=== PATIENT | male | born 1960 | race Caucasian/White ===

== ENCOUNTER → 2017-04-10 | Outpatient (CLI) | payer OTHER ==
--- NOTE | 2017-04-10 17:04 | RAD ---
Chest, 2 views, 04/10/2017: History: Cough, COPD, smoking history There are emphysematous changes in the lungs. The lungs are hyperexpanded. There are moderate bilateral linear pulmonary opacities compatible with scarring. There is of pleural thickening are also present bilaterally compatible with scarring. There are granulomatous calcifications in the left lung. No definite pulmonary consolidation is seen. No significant pleural fluid is evident. Moderate hypertrophic spurring is present in the spine. IMPRESSION: 1. Emphysema. 2. Moderate bilateral pleural-parenchymal opacities most compatible with scarring.
== END | disposition home or self-care (01) ==
LOC: DXRADRC 12:24
PROVIDERS: ATTEND Nurse Practitioner Family
DX: J44.9 Chronic obstructive pulmonary disease, unspecified (principal); F17.200 Nicotine dependence, unspecified, uncomplicated
CPT/HCPCS: 71020

== ENCOUNTER 2017-08-14 11:31 | Emergency (ER) | payer OTHER ==
[~2017-08-14] VITALS: Ht 175.3 cm; Wt 79.4 kg
--- NOTE | 2017-08-14 12:41 | PHYS DOC ---
Past History Past Medical History: Hypertension Alcohol Use: Occasionally Drug Use: None Adult General Chief Complaint Chief Complaint: NOSEBLEED HPI HPI Patient is a 57 year old M who presents with intermittent nosebleed over the past 3-4 days. He also describes occasional dizziness is worse with standing or changing position. He denies other associated symptoms. He denies other exacerbating or alleviating factors. Review of Systems Review of Systems Constitutional: Denies fever or chills [] Eyes: Denies change in visual acuity, redness, or eye pain [] HENT: Negative except history of present illness Respiratory: Denies cough or shortness of breath [] Cardiovascular: No additional information not addressed in HPI [] GI: Denies abdominal pain, nausea, vomiting, bloody stools or diarrhea [] : Denies dysuria or hematuria [] Musculoskeletal: Denies back pain or joint pain [] Integument: Denies rash or skin lesions [] Neurologic: Denies headache, focal weakness or sensory changes [] Endocrine: Denies polyuria or polydipsia [] All other systems were reviewed and found to be within normal limits, except as documented in this note. Family History Family History No pertinent family medical history reported Current Medications Current Medications Current medications were reviewed Allergies Allergies Allergies Coded Allergies Type Severity Reaction Last Updated Verified No Known Drug Allergies 08/14/17 No Physical Exam Physical Exam Constitutional: Well developed, well nourished, no acute distress, non-toxic appearance. [] HENT: Normocephalic, atraumatic, dried blood in the left Koch without active bleeding noted. No clear source for bleeding was identified Eyes: EOMI, conjunctiva normal, no discharge. [] Neck: Normal range of motion, no tenderness, supple, no stridor. [] Cardiovascular:Heart rate regular rhythm, Lungs & Thorax: Bilateral breath sounds clear to auscultation [] Abdomen: Bowel sounds normal, soft, no tenderness, no masses, no pulsatile masses. [] Skin: Warm, dry, no erythema, no rash. o edema. [] Neurologic: Alert and oriented X 3, normal motor function, normal sensory function, no focal deficits noted. [] Psychologic: Affect normal, judgement normal, mood normal. [] Current Patient Data Vital Signs Vital Signs Date Time Temp Pulse Resp B/P (MAP) Pulse Ox O2 Delivery O2 Flow Rate FiO2 08/14/17 11:31 98.1 84 18 96 Room Air EKG EKG [] Radiology/Procedures Radiology/Procedures [] Course & Med Decision Making Course & Med Decision Making Pertinent Labs and Imaging studies reviewed. (See chart for details) Packing the nose was deferred as there was no active bleeding Dragon Disclaimer Dragon Disclaimer This electronic medical record was generated, in whole or in part, using a voice recognition dictation system. Departure Departure: Impression: Primary Impression: Nosebleed Disposition: HOME, SELF-CARE Condition: STABLE Referrals: LINDA ROSA APRN (PCP) Patient Instructions: Nosebleed Additional Instructions: Yan was seen in the emergency department for nosebleed. No emergency medical condition was found on history or physical exam. He was given education on managing a nosebleed which includes direct pressure, Afrin use in the setting of active bleeding and considering following up with an Ear Nose and Throat (ENT) doctor for further management. OMA PIERRE MD Aug 14, 2017 12:41
[2017-08-14 12:55] VITALS: BP 132/73
== END 2017-08-14 12:55 | disposition home or self-care (01) ==
LOC: ER 11:31
DX: R04.0 Epistaxis (principal); I10 Essential (primary) hypertension
CPT/HCPCS: 99281

== ENCOUNTER 2020-02-03 09:16 | Inpatient (IN) | payer BC, OTHER ==
[~2020-02-03] VITALS: Ht 176.5 cm; Wt 74.2 kg
--- NOTE | 2020-02-03 09:31 | PHYS DOC ---
Past History Past Medical History: Hypertension Additional Past Surgical Histo: Angioplasty to legs Smoking: Cigarettes, Greater than 1 pack/day Additional Smoking Information: 1.5ppd Alcohol Use: Occasionally Additional Alcohol Information: "a couple beers" a day Drug Use: None General Adult EDM: Chief Complaint: SHORTNESS OF BREATH HPI: HPI: 60-year-old male with past medical history of hypertension and smokes 1.5 packs/day presents with report of progressive shortness of air. Patient reports became worse over the last 4 days. Reports worse with exertion. Denies fever or chills. 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 Denies trauma. Denies leg swelling or calf tenderness. Denies known sick contacts. Denies known exposure to COVID-19. Review of Systems: Review of Systems: Constitutional: Denies fever or chills Eyes: Denies redness or eye pain HENT: Denies nasal congestion or sore throat Respiratory: Reports cough, shortness of breath, and dyspnea with exertion Cardiovascular: Denies chest pain or palpitations GI: Denies abdominal pain, nausea, or vomiting : Denies dysuria or hematuria Musculoskeletal: Denies back pain or joint pain Integument: Denies rash or skin lesions Neurologic: Denies headache, focal weakness or sensory changes; reports generalized weakness Complete systems were reviewed and found to be within normal limits, except as documented in this note. Heart Score: HEART Score for Chest Pain: HEART Score for Chest Pain Response (Comments) Value History Moderately Suspicious 1 ECG Nonspecific Repolarizatio 1 Age >45 - < 65 1 Risk Factors 1 or 2 Risk Factors 1 Troponin >1-<3x Normal Limit 1 Total 5 Risk Factors: Risk Factors: DM, Current or recent (<one month) smoker, HTN, HLP, family history of CAD, obesity. Risk Scores: Score 0 - 3: 2.5% MACE over next 6 weeks - Discharge Home Score 4 - 6: 20.3% MACE over next 6 weeks - Admit for Clinical Observation Score 7 - 10: 72.7% MACE over next 6 weeks - Early Invasive Strategies Allergies: Allergies: Allergies Coded Allergies Type Severity Reaction Last Updated Verified No Known Drug Allergies 08/14/17 No Physical Exam: PE: Constitutional: Well developed, well nourished, mild respiratory distress primarily with exertion, non-toxic appearance HENT: Normocephalic, atraumatic Eyes: Conjunctiva normal, no discharge Neck: Normal range of motion, no tenderness, supple, JVD Cardiovascular: Heart rate normal, irregular rhythm Lungs & Thorax: Increased work of breathing, tachypnea Abdomen: Soft, no tenderness Skin: Warm, dry, no erythema, no rash Extremities: No tenderness, ROM intact, trace BLE edema Neurologic: Alert and oriented X 3, no focal deficits noted Psychologic: Affect normal, judgment normal EKG: EKG: @0926 Sinus rhythm with bigeminy, QRS 106ms, QT/QTc 380/514ms Radiology/Procedures: Radiology/Procedures: PROCEDURE: CHEST AP ONLY CHEST AP ONLY 02/03/2020 9:18 AM INDICATION: Shortness of air with recent travel. COMPARISON: None available TECHNIQUE: Portable frontal view of the chest is provided. FINDINGS: The cardiomediastinal silhouette is within normal limits. Increase in small right pleural effusion with adjacent compressive atelectasis versus infiltrate. Increased trace left pleural effusion. Increased patchy interstitial airspace disease at the lung bases which could reflect superimposed pulmonary infiltrate. There is underlying COPD changes with pulmonary emphysematous changes and chronic interstitial findings. No pneumothorax. IMPRESSION: Increased bilateral pleural effusions with bibasilar interstitial airspace disease as may be seen with interstitial pneumonitis or interstitial edema. Electronically signed by: Ruthy Cook MD (02/03/2020 9:41 AM) [id number] PROCEDURE: CT ANGIOGRAPHY CHEST Examination: CT angiography chest HISTORY: Dyspnea, elevated d-dimer COMPARISON: 03/06/2011 TECHNIQUE: Axial CT angiographic images of chest were performed with IV contrast. Coronal and sagittal 3-D MIP reformats are performed Exposure: One or more of the following individualized dose reduction techniques were utilized for this examination: 1. Automated exposure control 2. Adjustment of the mA and/or kV according to patient size 3. Use of iterative reconstruction technique FINDINGS: The visualized thyroid gland grossly appears unremarkable. Central airways are patent. Moderate atherosclerotic calcifications identified in the aorta. Coronary artery calcifications identified. There is no evidence of filling defect identified in the main pulmonary arterial trunk and right and left main pulmonary arteries and the visualized lobar or segmental branches of the pulmonary arteries. Severe bilateral lung emphysematous changes. Calcified pleural plaques identified in the bilateral lungs including the bibasilar lungs are clear. There is a 7.2 cm linear density identified abutting the pleura in the right upper lobe and right middle lobe anteriorly could be scarring or round atelectasis or mass. Linear scarring changes identified in the left lingula. The visualized liver, spleen, adrenals grossly appears unremarkable. Partially visualized cystic structure identified in the right kidney measuring 2.8 cm probably a cyst. Moderate degenerative changes thoracic spine. IMPRESSION: 1. No evidence of pulmonary embolism. 2. Severe bilateral lung emphysematous changes with bilateral calcified pleural plaques. 3. There is a 7.2 cm linear density identified abutting the pleura in the right upper lobe and right middle lobe anteriorly could be scarring or round atelectasis or mass. Linear scarring changes identified in the left lingula. Consider follow-up PET/CT scan. Electronically signed by: Norberto Escoto MD (02/03/2020 12:11 PM) [id number] Course & Med Decision Making: Course & Med Decision Making Pertinent Labs and Imaging studies reviewed. (See chart for details) Patient presents with progressive shortness of air or the past week. Patient reports worse with exertion. Patient also with history of recent travel to [place]. COVID-19 suspected due to risk factors. COVID testing pending. Patient immediately placed in negative pressure room upon arrival to the ER. COVID precautions in place. EKG with bigeminy. No prior EKG for comparison. Labs obtained and posted to chart. WBC slightly elevated. Lactic acid WNL. BNP > 6000. Troponin 0.1. Anemia noted. Patient denies known active bleeding. Patient reports drinks at least "2 beers" daily. CXR with findings of bilateral opacities- infectious vs pulmonary edema. Empiric antibiotics given, however given elevated BNP and arrhythmia, more likely cardiac in nature. ASA and Lasix provided. D-dimer elevated. CTA chest obtained. CTA chest without acute PE. Emphysematous changes noted. Linear atelectasis versus scarring versus mass noted Patient requiring admission for further evaluation and treatment. Discussed with Dr. Anna (hospitalist) who is in agreement with admission. Discussed findings and plan with patient, who acknowledges understanding and agreement. COVID-19 CRITERIA: The patient was evaluated during the global COVID-19 pandemic, and that diagnosis was suspected/considered upon their initial presentation. Their evaluation, treatment and testing was consistent with current guidelines for patients who present with complaints or symptoms that may be related to COVID-19. [place]seas Disclaimer: Dragtip Disclaimer: This electronic medical record was generated, in whole or in part, using a voice recognition dictation system. Departure Departure: Impression: Primary Impression: CHF (congestive heart failure) Qualified Codes: I50.9 - Heart failure, unspecified Additional Impressions: Suspected 2019 novel coronavirus infection Elevated troponin Anemia Qualified Codes: D64.9 - Anemia, unspecified Bigeminy Elevated d-dimer Disposition: ADMITTED INPATIENT Admitting Physician: Deejay Anna Condition: GUARDED Referrals: FAMILIA KHALIL (PCP) Justification of Admission: Justification of Admission: Justification of Admission Dx: Yes CHF: Cardiac Arrhythmias Comments: Suspected COVID19, Anemia COVID-19 Assessment COVID-19 Patient Risks: Age 65 or older: No Sign of co-morbidity: Yes Exp to person + for COVID: No Exp to PUI: No Travel from affected area: Yes Lower respiratory symptoms: Yes Fever: No PPE Use: Full PPE with N95 mask or PAPR: Yes Critical Care Time Critical care time was 30 minutes which includes time at bedside, spent in discussion of patient's care with specialists and/or family members, with interpretation of laboratory and/or radiological studies and is exclusive of procedures. RUTHIE SCHWARZ DO Feb 03, 2020 09:31
[2020-02-03] MEDS ORDERED: DEXAMETHASONE SOD PHOS 10 MG/ML VIAL. ONE (09:39)
[2020-02-03] MEDS ORDERED: PIPERACILLIN/TAZOBACTAM 4.5 GM VIAL IV ONE (09:39)
[2020-02-03] MEDS ORDERED: AZITHROMYCIN 500 MG VIAL. IV ONE (09:40)
[2020-02-03] MEDS ORDERED: IV NORMAL SALINE 50ML 50 ML ONE (09:41)
[2020-02-03] MEDS ORDERED: IV NORMAL SALINE 250ML 250 ML ONE ×2 (09:41→09:57)
--- NOTE | 2020-02-03 09:44 | RAD ---
CHEST AP ONLY 02/03/2020 9:18 AM INDICATION: Shortness of air with recent travel. COMPARISON: None available TECHNIQUE: Portable frontal view of the chest is provided. FINDINGS: The cardiomediastinal silhouette is within normal limits. Increase in small right pleural effusion with adjacent compressive atelectasis versus infiltrate. Increased trace left pleural effusion. Increased patchy interstitial airspace disease at the lung bases which could reflect superimposed pulmonary infiltrate. There is underlying COPD changes with pulmonary emphysematous changes and chronic interstitial findings. No pneumothorax. IMPRESSION: Increased bilateral pleural effusions with bibasilar interstitial airspace disease as may be seen with interstitial pneumonitis or interstitial edema. Electronically signed by: Ruthy Cook MD (02/03/2020 9:41 AM) [id number]
[2020-02-03] MEDS ORDERED: DEXAMETHASONE SOD PHOS 10 MG/ML VIAL. IV ONE (09:45)
[2020-02-03] MEDS ORDERED: PIPERACILLIN/TAZOBACTAM 4.5 GM in IV NORMAL SALINE 50ML 50 ML IV ONE (09:45)
[2020-02-03] MEDS ORDERED: AZITHROMYCIN 500 MG in IV NORMAL SALINE 250ML 250 ML IV ONE (09:45)
[2020-02-03] MEDS ORDERED: ASPIRIN 325 MG TABLET PO ONE (10:00)
[2020-02-03 10:09] LABS: BASO # 0.1 x10^3/uL (0.0-0.2); BASO % 1 % (0-3); EOS # 0.1 x10^3/uL (0.0-0.7); EOS % 1 % (0-3); HEMATOCRIT 28.9 % (39.0-53.0); HEMOGLOBIN 8.8 g/dL (13.0-17.5); LYMPH % 16 % (24-48); MEAN CORPUSCULAR HEMOGLOBIN 22 pg (25-35); MEAN CORPUSCULAR HGB CONC 30 g/dL (31-37); MEAN CORPUSCULAR VOLUME 71 fL (79-100); MONO # 1.3 x10^3/uL (0.0-1.1); MONO % 11 % (0-9); NEUT # 8.7 x10^3uL (1.8-7.7); NEUT % 72 % (31-73); PLATELET COUNT 458 x10^3/uL (140-400); RED BLOOD COUNT 4.09 x10^6/uL (4.30-5.70); RED CELL DISTRIBUTION WIDTH 17.7 % (11.5-14.5); WHITE BLOOD COUNT 12.2 x10^3/uL (4.0-11.0)
[2020-02-03 10:19] LABS: ANION GAP 12 (6-14); BLOOD UREA NITROGEN 15 mg/dL (8-26); BUN/CREATININE RATIO 14 (6-20); CALCIUM 8.4 mg/dL (8.5-10.1); CARBON DIOXIDE 24 mmol/L (21-32); CHLORIDE 95 mmol/L (98-107); CREATININE 1.1 mg/dL (0.7-1.3); GFR 67.8; GLUCOSE 114 mg/dL (70-99); POTASSIUM 4.4 mmol/L (3.5-5.1); SODIUM 131 mmol/L (136-145)
[2020-02-03 10:35] LABS: ALBUMIN 3.3 g/dL (3.4-5.0); ALBUMIN/GLOBULIN RATIO 0.8 (1.0-1.7); ALK PHOS 93 U/L (46-116); ALT (SGPT) 17 U/L (16-63); AST (SGOT) 14 U/L (15-37); MAGNESIUM 2.1 mg/dL (1.8-2.4); TOTAL BILIRUBIN 0.5 mg/dL (0.2-1.0); TOTAL PROTEIN 7.2 g/dL (6.4-8.2)
[2020-02-03] MEDS ORDERED: FUROSEMIDE 40 MG/4 ML VIAL IVP ONE (10:50)
[2020-02-03] MEDS ORDERED: CONTRAST GIVEN. MC PRN (11:30)
[2020-02-03] MEDS ORDERED: IOHEXOL 350 MG/ML 100 ML VIAL. IV ONE (11:30)
[2020-02-03] MEDS ORDERED: FUROSEMIDE 100 MG/10 ML VIAL IVP ONE (11:45)
--- NOTE | 2020-02-03 11:56 | HP ---
ADMIT DATE: ATTENDING PHYSICIAN: Dr. Guerrero CHIEF COMPLAINT: Shortness of breath. HISTORY OF PRESENT ILLNESS: The patient is a 60-year-old gentleman admitted through the ED with a 4-day history of progressive dyspnea with minimal exertion. Dictation Ends Here. BO GUERRERO MD DR: TUNDE/ruchi JOB#: [id number] / [id number]
--- NOTE | 2020-02-03 12:14 | RAD ---
Examination: CT angiography chest HISTORY: Dyspnea, elevated d-dimer COMPARISON: 03/06/2011 TECHNIQUE: Axial CT angiographic images of chest were performed with IV contrast. Coronal and sagittal 3-D MIP reformats are performed Exposure: One or more of the following individualized dose reduction techniques were utilized for this examination: 1. Automated exposure control 2. Adjustment of the mA and/or kV according to patient size 3. Use of iterative reconstruction technique FINDINGS: The visualized thyroid gland grossly appears unremarkable. Central airways are patent. Moderate atherosclerotic calcifications identified in the aorta. Coronary artery calcifications identified. There is no evidence of filling defect identified in the main pulmonary arterial trunk and right and left main pulmonary arteries and the visualized lobar or segmental branches of the pulmonary arteries. Severe bilateral lung emphysematous changes. Calcified pleural plaques identified in the bilateral lungs including the bibasilar lungs are clear. There is a 7.2 cm linear density identified abutting the pleura in the right upper lobe and right middle lobe anteriorly could be scarring or round atelectasis or mass. Linear scarring changes identified in the left lingula. The visualized liver, spleen, adrenals grossly appears unremarkable. Partially visualized cystic structure identified in the right kidney measuring 2.8 cm probably a cyst. Moderate degenerative changes thoracic spine. IMPRESSION: 1. No evidence of pulmonary embolism. 2. Severe bilateral lung emphysematous changes with bilateral calcified pleural plaques. 3. There is a 7.2 cm linear density identified abutting the pleura in the right upper lobe and right middle lobe anteriorly could be scarring or round atelectasis or mass. Linear scarring changes identified in the left lingula. Consider follow-up PET/CT scan. Electronically signed by: Norberto Escoto MD (02/03/2020 12:11 PM) [id number]
[2020-02-03 12:40] VITALS: BP 111/75
--- NOTE | 2020-02-03 12:40 | HP ---
ADMIT DATE: 02/03/2020 ATTENDING PHYSICIAN: Dr. Guerrero. CHIEF COMPLAINT: Shortness of breath. HISTORY OF PRESENT ILLNESS: The patient, age 60, has a 4-day history of progressive shortness of breath. He is quite dyspneic at rest. He has orthopnea, worse with exertion. No fevers or chills. In the ED, the chest x-ray demonstrated cardiomegaly and bilateral pleural effusions and vascular congestion. The patient denies any recent exposure to COVID-19. He does drink heavily. He admits at least a 6-pack perhaps more day of beer. He also drinks alcohol. In addition, he is a heavy smoker, 2 packs a day history. He denied any chest pain. His initial cardiac enzymes were slightly elevated. He has some bigeminy on the rhythm strip. Lasix was administered, second dose administered. 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 He is admitted for further treatment, evaluation, serial chemistry, diuresis, cardiology consultation and echocardiogram. PAST MEDICAL HISTORY: Significant for angioplasty to the left leg for peripheral vascular disease 7 years ago. He had vague, remote history of TIA which was very short lasting about 20 years ago. RECENT TRAVEL: He went to [place]. He does drink to excess. He has not had any recent COVID-19 exposure. SOCIAL HISTORY: He has greater than 2 packs a day smoking for many years. Alcohol history as noted. He denies any recreational drug use. ALLERGIES: He has no recorded drug allergies. CURRENT HOME SCHEDULED MEDICINES: None. 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 He had recent travel to [place] 3 weeks ago for a convention. No recent other exposures. REVIEW OF SYSTEMS: Significant for dyspnea with minimal exertion, orthopnea, dry nonproductive cough, dyspnea with exertion, some palpitations. No nausea, vomiting, diarrhea. All other systems reviewed and turned to be negative. PHYSICAL EXAMINATION: GENERAL: I saw him. This is a pleasant gentleman who appears a bit older than her stated age. VITAL SIGNS: In the ED showed a blood pressure of 125/84, pulse was 50 and irregular, temperature 98.5 degrees Fahrenheit, oxygen saturation 95% on 2 liters nasal cannula. HEENT: Head is without trauma. Pupils are reactive. Sclerae nonicteric. Oropharynx is clear. NECK: Supple, no bruits identified. LUNGS: Bibasilar rales. CARDIOVASCULAR: Showed regular heart tones, frequent extra systolic beats. Peripheral pulses are palpable and weak. ABDOMEN: Soft, obese, protuberant. No organomegaly. Bowel sounds are hypoactive. EXTREMITIES: Showed no cyanosis or edema. Surgical scar in the left knee is well healed. Peripheral pulses distally were adequate. SKIN: Warm and dry. PERTINENT LABORATORY STUDIES: Chest x-ray showed increased bilateral pleural effusion, bibasilar interstitial airspace disease consistent with interstitial edema. Heart size is upper limits of normal. Hemoglobin is 8.8 g/dL with white count of 12,200. Sodium 131, potassium 4.4 mEq, creatinine is 1.1 mg/dL. BNP is 6000. First set of troponin was 0.10. Lactic acid was normal. ASSESSMENT: 1. 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 2. Acute congestive heart failure most likely systolic in nature. 3. Chronic obstructive pulmonary disease due to tobacco use. 4. Peripheral vascular disease related to lifestyle. 5. Anemia of chronic disease. His MCV is diminished. I suspect he has insidious internal gastrointestinal blood loss. 6. Dyspnea and hypoxemia. 7. Bigeminy noted on rhythm strip. PLAN: 1. Admit to the inpatient unit. 2. Telemetry monitoring. 3. Diuresis. 4. Echocardiogram. 5. Serial CBCs and chemistries. 6. Cardiology consultation. 7. Further treatment pending results of echocardiogram. Most likely he will need preload and afterload reduction. 8. Nicotine patch has been ordered. 9. Monitor for signs of alcohol withdrawal symptoms. 10. He needs to have GI evaluation with panendoscopy. I suspect he has iron deficiency anemia, certainly malignancies and ulcer disease needs to be ruled out. That could be scheduled as an outpatient. BO GUERRERO MD DR: TUNDE/ruchi JOB#: [id number] / [id number]
[2020-02-03 12:48] LABS: HYPOCHROMIA MOD; PLT ESTIMATE INCREASED (ADEQUATE); POLYCHROMASIA PRESENT
[2020-02-03 12:52] LABS: MICROCYTOSIS PRESENT
[2020-02-03 12:53] LABS: BURR CELLS PRESENT; OVALOCYTES OCC; TARGET CELLS OCC
[2020-02-03 12:54] LABS: ANISOCYTOSIS PRESENT
--- NOTE | 2020-02-03 13:08 | NUR ---
CONSULT FOR CARDIOLOGY HAS BEEN CALLED.
[2020-02-03] MEDS: NICOTINE 21MG PATCH. TD SCH (13:31)
--- NOTE | 2020-02-03 14:40 | NUR ---
PATIENT ARRIVED TO THE ROOM 125 VIA EMS, ABLE TO TRANSFER TO BED WITH STAND BY ASSIST. PT IS A/O X 4, ABLE TO PERFORM ADLS INDEPENDENTLY. VS ARE STABLE, PT IS PLACED ON ISOLATION WITH CONTACT /AIRBORNE PRECAUTIONS , PT WAS TESTED FOR COVID 19 IN ED, PENDING RESULT. PT IS ON CONTINUOUS 02 2L, HOB ELEVATED. PT IS ORIENTED TO THE ROOM AND HOSPITAL POLICIES. PT VERBALIZED UNDERSTANDING. WILL CONTINUE TO MONITOR.
[2020-02-03] MEDS ORDERED: LOSA50TA14 PO (14:41)
[2020-02-03] MEDS ORDERED: AMLO10TA8 PO (14:41)
--- NOTE | 2020-02-03 15:36 | CONS ---
DATE OF CONSULTATION: 02/03/2020 REASON FOR CONSULTATION: Heart failure and elevated troponin. CONSULTING PHYSICIAN: Dr. Deejay Anna. HISTORY OF PRESENT ILLNESS: The patient is a pleasant 60-year-old man who presents to the hospital in the setting of worsening progressive dyspnea. He reports that he was in his usual state of health until about a week ago and then he began to have some worsening exertional dyspnea. He denies any chest pain. He denies any palpitations, syncope, orthopnea, but does have some PND and lower extremity edema. He also reports some claudication symptoms. Since arrival, he has been given IV diuretics and reports feeling somewhat improved. A CT scan of the chest has also been performed, which suggestive of severe emphysematous changes. PAST MEDICAL HISTORY: 1. Tobacco abuse. 2. Alcohol abuse. 3. PAD status post PVI the left SFA in 2014. SOCIAL HISTORY: Notable that he smokes heavily. He also drinks heavily. Denies any illicit drug use. He lives at home with his . FAMILY HISTORY: Noncontributory. ALLERGIES: No known drug allergies. CURRENT CARDIOVASCULAR MEDICATIONS: None. PHYSICAL EXAMINATION: VITAL SIGNS: Afebrile, 102, 20, 111/75, 96% on 2 liters nasal cannula. GENERAL: He is alert and oriented, no acute distress. HEAD AND NECK: Unremarkable. CARDIAC: Regular rate and rhythm without murmurs, rubs or gallops. LUNGS: Clear to auscultation bilaterally. ABDOMEN: Soft, nontender, nondistended. EXTREMITIES: No clubbing, cyanosis or edema with diminished pedal pulses, 2+ radial pulses. NEUROLOGIC: No focal deficits. MUSCULOSKELETAL: No obvious trauma. DIAGNOSTIC STUDIES: 1. His hemoglobin decreased to 8.2, elevated white blood cell count 12.2. 2. Creatinine is within normal limits with low sodium of 131. 3. Troponin elevated 0.107. 4. CT of the chest reveals severe emphysematous changes. IMPRESSION: Presumed systolic and diastolic heart failure with underlying chronic obstructive pulmonary disease. RECOMMENDATIONS: We will plan for an echocardiogram after his COVID testing is performed and for now continue intravenous diuretics and treatment of his COPD. Depending on his echocardiogram, if he has some LV dysfunction, we will plan for transfer to [place] for cardiac catheterization, otherwise, we will plan for outpatient MPI evaluation. Thank you for this consultation. DALTON BAUMAN MD DR: AVELINO/ruchi JOB#: [id number] / [id number]
[2020-02-03 15:38] VITALS: BP 125/76
--- NOTE | 2020-02-03 20:16 | EKG ---
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
[2020-02-03 20:27] VITALS: BP 126/71
[2020-02-03 23:46] VITALS: BP 112/64
--- NOTE | 2020-02-04 05:47 | NUR ---
Pt slept in [place]. He is up ad frantz to the bathroom to void without c/o SOB. Voiding now per urinal the last few voids but prior to that reported he had voided at about 5 times prior. He has been afebrile and VSS. We discussed his covid results to come back today. He asked about the ECHO and if that would be done here and I said yes we do that here. He does mention he is feeling better now than when he came in though.
[2020-02-04 05:50] VITALS: BP 119/67
[2020-02-04] MEDS: NICOTINE 21MG PATCH. TD SCH (09:00)
[2020-02-04 11:00] VITALS: BP 113/66
[2020-02-04 15:00] VITALS: BP 113/68
[2020-02-04] MEDS: IPRATROPIUM/ALBUTEROL 20/100mcg/INH INHALER. INH SCH ×2 (15:57→20:00)
--- NOTE | 2020-02-04 16:58 | PN ---
DATE: 02/04/2020 SUBJECTIVE: The patient is resting, slightly propped up in bed, in no apparent respiratory distress. He continued to have recurrent bouts of cough with scanty whitish sputum. Denied any chest pain. He denied any shortness of breath while at rest. Did complain of pain in the calf muscle when he walks, it gets worse when he walks about 60 feet. He apparently is a heavy smoker. He smokes about 1-1/2 packs a day for almost 50 years. He does have peripheral vascular disease, status post angioplasty and stent deployment to his left lower extremity. PHYSICAL EXAMINATION: GENERAL: When I examined him this afternoon, he looked well and with no pallor. He was actually pale, but no jaundice, cyanosis, or thyromegaly. No jugular venous distension. No lower limb edema. VITAL SIGNS: His heart rate was 109, blood pressure was 113/66, temperature was 98.4, respiratory rate 20, and oxygen saturation was 95%. HEAD, EYES, EARS, NOSE AND THROAT: Normocephalic, atraumatic. NECK: Supple. HEART: Showed normal first and second heart sounds. No gallop, rub or murmur. CHEST: Showed central trachea, equal bilateral chest expansion, air entry. Vesicular sounds, I could not really appreciate any crepitation or rhonchi anteriorly. ABDOMEN: Distended, soft, nontender. No guarding or rigidity. No organomegaly. All hernial orifice intact. Bowel sounds normal. NEUROLOGIC: He is awake, alert, responding appropriately. All cranial nerves are intact. He moves extremities without difficulty. EXTREMITIES: Examination of both lower extremities showed no clubbing, cyanosis or edema. He has loss of skin appendages. The dorsalis pedis and tibialis are easily audible with handheld Doppler ultrasound. His intake over the last 24 hours was incompletely recorded. LABORATORY DATA: His lab work as of yesterday showed a white cell count 12,200, hemoglobin 8.8, hematocrit 28.9, MCV 71 and platelet count of 458,000 with a manual differential shows 72% polymorphs, 16% lymphocytes, 11% monocytes. His chemistry showed a serum sodium 131, potassium 4.4, chloride 95, bicarbonate 24, anion gap of 12, BUN 15, creatinine 1.1, estimated GFR was 68 mL per minute. His glucose was 114. Lactic acid is only 1.7. His calcium was 8.4, magnesium was 2.1. Total bilirubin, AST, ALT, alkaline phosphatase were normal. CK was 72 and first set of troponin was 0.107. Beta natriuretic peptide was 6031. Total protein was 7.2, albumin was 3.3. His prothrombin time, INR and APTT were normal. D-dimer was high at 1.42. Toxic screen showed blood alcohol level to be less than 10. His chest x-ray showed the patient has increased bilateral pleural effusion with bilateral interstitial airspace disease, may be seen with interstitial pneumonitis, interstitial edema. CT angio of the chest showed there is no evidence of pulmonary embolism, severe bilateral lung, emphysematous changes, bilateral calcified pleural plaques. There is a 7.2 cm linear density identified abutting the pleura in the right upper lobe and right middle lobe anteriorly, could be scarring or rounded atelectasis or mass. Linear scarring changes identified in the left lingula. In summary, this is a 60-year-old male patient who came in with progressively worsening shortness of breath. He denied any chest pain, denied any palpitations, syncope. Denied any orthopnea, but does have some paroxysmal nocturnal dyspnea and lower extremity edema. He also reports claudication symptoms since arrival. He has received IV diuretics and he was feeling somewhat improved. CT of the chest showed no evidence of pulmonary emboli, but has severe emphysematous changes. He has 3 sets of cardiac enzymes that are trending down. He continued to have multiple episodes of bigeminy and trigeminy. ASSESSMENT: 1. Severe chronic obstructive pulmonary disease. 2. Acute systolic and diastolic congestive heart failure. 3. Anemia that is microcytic hypochromic, has hyponatremia and elevated troponin. He was seen in consultation by the Cardiology team and an echocardiogram was ordered. It was not done yet. I will arrange for him to have bilateral arterial Doppler ultrasound and also serum iron, TIBC and stool for occult blood. He is not on any nonsteroidal anti-inflammatory medication at least by the medication list. He is on amlodipine and losartan. He indicated that he has also hypertension. RANDALL AGARWAL MD DR: ALEX/ruchi JOB#: [id number] / [id number]
--- NOTE | 2020-02-04 18:53 | NUR ---
Shift report: Patient has been very pleasant and cooperative throughout shift. Patient has consistently had various forms of ectopy throughout entire shift, PVC's, PAC's Bigeminy, Trigeminy and a 5 beat run of VTACH. Dr. Sena was called and notified of these findings and he stated that he thought the patient was stable and did not need any intervention at this time. We are waiting on the Echocardiogram to be completed along with receiving the results from patients Covid19 test to determine what the next plan of care will be. Dr Sena stated the patient will either transfer to [place] if Echo results are abnormal for a cardiac cath or if Echo normal results patient will be scheduled for an outpatient stress test. Patient is aware of this plan of care and is agreeable to this plan at this time
[2020-02-04 20:00] VITALS: BP 119/74
[2020-02-04 22:41] VITALS: BP 117/72
[2020-02-04 22:55] LABS: FECAL OB PT POSITIVE (NEG)
[2020-02-05 06:16] VITALS: BP 119/57
[2020-02-05 06:22] LABS: CALCIUM 8.5 mg/dL (8.5-10.1); GFR 75.7; POTASSIUM 3.9 mmol/L (3.5-5.1)
[2020-02-05] MEDS: NICOTINE 21MG PATCH. TD SCH (08:38)
[2020-02-05 11:00] VITALS: BP 105/88
[2020-02-05] MEDS: IPRATROPIUM/ALBUTEROL 20/100mcg/INH INHALER. INH SCH (12:00)
--- NOTE | 2020-02-05 13:35 | CARD ---
MR#: [id number] Date of Study: 02/05/2020 Ordering Physician: BO GUERRERO, Referring Physician: BO GUERRERO, Tech: Clara Thomson RDCS APPROVED REPORT EXAM: Two-dimensional and M-mode echocardiogram with Doppler and color Doppler. Other Information Quality : Good Rhythm : PVC's INDICATION Congestive Heart Failure 2D DIMENSIONS RVDd2.1 (2.9-3.5cm)Left Atrium(2D)4.3 (1.6-4.0cm) IVSd0.7 (0.7-1.1cm)Aortic Root(2D)3.0 (2.0-3.7cm) LVDd6.4 (3.9-5.9cm)LVOT Diameter2.3 (1.8-2.4cm) PWd0.6 (0.7-1.1cm)RVOT Diameter2.2 cm LVDs4.9 (2.5-4.0cm)FS (%) 30.0 % LVEF(%)60.0 (>50%) Aortic Valve REA (VTI)4.20cm2 LEFT VENTRICLE The Left Ventricle is mildly dilated. There is normal left ventricular wall thickness. Left ventricle systolic function is low normal. The Ejection Fraction is 50-55%. Septal motion consistent with cond uction abnormality. Otherwise, mild global hypokinesis. Transmitral Doppler flow pattern is Grade I-a bnormal relaxation pattern. RIGHT VENTRICLE The right ventricle is normal size. The right ventricular systolic function is normal. ATRIA The left atrium is mildly dilated. The right atrium size is normal. The interatrial septum is intact with no evidence for an atrial septal defect or patent foramen ovale as noted on 2-D or Doppler imagi ng. AORTIC VALVE The aortic valve is calcified but opens well. Doppler and Color Flow revealed no significant aortic r egurgitation. There is no significant aortic valvular stenosis. MITRAL VALVE The mitral valve is normal in structure and function. There is no evidence of mitral valve prolapse. There is no mitral valve stenosis. Doppler and Color-flow revealed mild mitral regurgitation. TRICUSPID VALVE The tricuspid valve is normal in structure and function. Doppler and Color Flow revealed no tricuspid valve regurgitation noted. There is no tricuspid valve stenosis. PULMONIC VALVE Doppler and Color Flow revealed no pulmonic valvular regurgitation. There is no pulmonic valvular gerson nosis. GREAT VESSELS The aortic root is normal in size. The ascending aorta is mildly dilated at 3.5 cm. The IVC is normal in size and collapses >50% with inspiration. PERICARDIAL EFFUSION There is no evidence of significant pericardial effusion. Critical Notification Critical Value: No <Conclusion> Left ventricle systolic function is low normal. The Ejection Fraction is 50-55%. Septal motion consistent with conduction abnormality. Otherwise, mild global hypokinesis. The ascending aorta is mildly dilated at 3.5 cm. Signed by : Leo Sena, Electronically Approved : 02/05/2020 13:35:27
[2020-02-05 15:29] VITALS: BP 120/73
--- NOTE | 2020-02-05 16:00 | RAD ---
DUPLEX SONOGRAPHY OF THE PERIPHERAL ARTERIAL SYSTEM OF BOTH LOWER EXTREMITIES Clinical indications: Claudication with walking 60 feet. Findings: Duplex sonography of the peripheral arterial system of both lower extremities including garza scale and color flow and spectral waveform analysis was performed. Biphasic waveforms are seen. There is moderate plaque throughout the peripheral arterial system of both lower extremities. There is a significant stenosis of the proximal right profunda femoral artery of 50 percent. No other significant stenosis is seen.No occlusive disease is seen. The measurements were performed using the NASCET criteria. Peak systolic flow velocities are as follows: Right leg: common femoral artery- 115 cm/sec, profunda femoral artery -198 cm/sec, proximal superficial femoral artery -102 cm/sec, mid superficial femoral artery -85 cm/sec, distal superficial femoral artery- 114 cm/sec, popliteal artery -118 cm/sec, proximal posterior tibial artery- 43 cm/sec, distal posterior tibial artery- 66 cm/sec, peroneal artery- 57 cm/sec, anterior tibial artery- 49 cm/sec, dorsalis pedis artery -31 cm/sec. Left leg: common femoral artery- 191 cm/sec, profunda femoral artery -115 cm/sec, proximal superficial femoral artery- 135cm/sec, mid superficial femoral artery- 66 cm/sec, distal superficial femoral artery- 37 cm/sec, popliteal artery -65 cm/sec, proximal posterior tibial artery -44 cm/sec, distal posterior tibial artery- 44 cm/sec, peroneal artery -31 cm/sec, anterior tibial artery -50 cm/sec, dorsalis pedis artery- 33 cm/sec. Impression: Significant 50 percent stenosis of the proximal right profunda femoral artery. No occlusive disease. Electronically signed by: Ar Vick MD (02/05/2020 3:57 PM) [id number]
--- NOTE | 2020-02-05 16:33 | NUR ---
Assumed care of pt at 0700. Pt is a/ox4, resting comfortably in bed. COVID test is negative, called ECHO in order to arrange his scan for today. ECHO and Arterial study completed, received okay from Cardiology to discharge. Awaiting Dr Ortiz.
[2020-02-05] MEDS ORDERED: ASCO500C PO (16:36)
[2020-02-05] MEDS ORDERED: FERR325T14 PO (16:36)
--- NOTE | 2020-02-05 17:20 | NUR ---
Discharge orders reviewed with pt, he states that he has no questions or concerns. Educated on new prescriptions. IV removed with no complications. Walked pt to the front door where spouse was waiting for him. Pt left with all of his belongings.
--- NOTE | 2020-02-05 17:58 | DS ---
DATE OF DISCHARGE: 02/05/2020 HOSPITAL COURSE: The patient is a 60-year-old male patient who was admitted with worsening progressive shortness of breath that started about a week ago; however, he denied any chest pain, denied any palpitation, orthopnea, although he apparently has some paroxysmal nocturnal dyspnea and lower extremity edema, also reports some claudication. He said he can only walk about 60 feet and then he started complaining of severe cramping pain in his both calf muscles. He was treated with IV diuretics. CT scan of the chest showed severe emphysema and he was admitted with suspected COVID-19 pneumonia; however, his test was negative. He did have 3 sets of cardiac enzymes, but trending down and has an echocardiogram, which basically showed that his left ventricular systolic function is normal, ejection fraction is 50-55%, septal motion consistent with conduction abnormality, otherwise mild global hypokinesis, the ascending aorta is mildly dilated at 3.5 cm and the decision was initially if the ejection fraction was low to transfer him to [place]; however, his echocardiogram showed that his ejection fraction is within normal range and therefore, a decision was made to discharge him home. I did arrange for him to have bilateral arterial Doppler ultrasound, which showed that the patient has significant 50% stenosis of the proximal right profunda femoral arteries, but no occlusive disease. A CT angio of the chest showed no evidence of pulmonary emboli; however, he has severe bilateral lung emphysematous changes, bilateral calcified pleural plaques. There is a 7.2 cm linear density identified abutting the pleura in the right upper lobe and the right middle lobe anteriorly could be scarring or round atelectasis or mass. Linear scarring changes identified in the left lingula. The radiologist recommended to consider followup PET CT scan. PHYSICAL EXAMINATION: GENERAL: When I saw him this afternoon, he was sitting on the edge of the bed comfortably in no apparent respiratory distress. No pallor, jaundice, cyanosis or thyromegaly. No jugular venous distention. No limb edema. VITAL SIGNS: His heart rate was 91, blood pressure was 120/73, temperature was 97.7, respiratory rate was 16, and oxygen saturation was 94% on room air. HEAD, EYES, EARS, NOSE AND THROAT: Showed normocephalic, atraumatic. NECK: Supple. HEART: Showed normal first and second heart sounds with no gallop, rub or murmur. CHEST: Clear to auscultation. No crepitation or rhonchi. ABDOMEN: Distended, soft, nontender. NEUROLOGIC: He was awake, alert, responding appropriately. All cranial nerves intact. EXTREMITIES: He moves extremities without difficulty. He ambulates without assistance or assistive devices. His intake over the last 24 hours was 1290. LABORATORY DATA: His lab work showed that his serum sodium continued to be somewhat low at 131, potassium 3.9, chloride 97, bicarbonate 24, anion gap of 10, BUN of 19, creatinine 1, estimated GFR was 75 mL per minute. His glucose was 94, calcium was 8.5. Serum iron was 10. TIBC was 444, iron saturation was 2. Ferritin was 14. He has serum triglycerides of 82, total cholesterol 134, LDL was 86, VLDL was 16, HDL was 32 and the ratio was 4. His white cell count was 12,200, hemoglobin 8.8, hematocrit 28.9, MCV 71 and platelet count of 458,000. His prothrombin time, INR and aPTT were normal. D-dimer was high at 1.42. Toxic screen was negative. His COVID-19 by PCR was negative. His stool for occult blood was positive. His 2 sets of blood cultures showed no growth. DISCHARGE MEDICATIONS: He was discharged home to continue on ascorbic acid 500 mg twice a day, ferrous sulfate 325 mg twice a day, amlodipine besylate 10 mg once a day, losartan potassium 50 mg twice a day. Continue also on his bronchodilators that he had at home. FINAL DISCHARGE DIAGNOSES: 1. Severe emphysema as reported by the CT scan of the chest with PE protocol, no evidence of pulmonary emboli. 2. Peripheral vascular disease, status post stenting of the left lower extremity. 3. Acute systolic and diastolic congestive heart failure, microcytic hypochromic anemia. 4. Hyponatremia. The patient probably has asbestos exposure, given that the CT scan showed bilateral calcified pleural plaques and he has also 7.2 cm linear density identified abutting the pleura in the right upper lobe and right middle lobe, anteriorly could be scarring or round atelectasis or mass. Renal scarring changes identified in the left lingula. Consider followup PET scan. He also discharged him on Nicoderm patch and emphasized the need for him to quit smoking. RANDALL AGARWAL MD DR: ALEX/ruchi JOB#: [id number] / [id number] FAMILIA Baron
--- NOTE | 2020-02-17 10:13 | RAD ---
Examination: PORTABLE CHEST 1V History: Reason: CHEST PAIN, HX COPD Comparison/Correlation: 02/03/2020 AP view of the chest Findings: Portable upright frontal view of the chest was obtained. Heart size normal. There is small pleural effusion is present but decreased compared to the prior exam. Improved aeration is present with decreased pulmonary interstitial edema. Right basilar atelectasis is decreased in interval. Left upper lung field scarring or atelectasis is noted. Opacification of the left lung apex is similar to prior exam. Pleural thickening and calcification bilaterally is seen greater on the left. No pneumothorax. Impression: Improved pulmonary aeration. Decreased pleural effusion. Electronically signed by: Red Marquez MD (02/17/2020 10:10 AM) [id number]
--- NOTE | 2020-02-17 10:33 | EKG ---
[address] [address] Test Date: 2020-02-17 Test Time: 05:21:57 Pat Name: TERE PHILLIP Department: Room: 125 A Gender: M Engagement Quality Consultant: : 1960 Requested By: RANDALL AGARWAL Order Number: [id number] Reading MD: Measurements Intervals [place] Rate: 109 P: 0 CT: 122 QRS: 78 QRSD: 102 T: 31 QT: 358 QTc: 484 Interpretive Statements SINUS TACHYCARDIA LOW LIMB LEAD VOLTAGE T ABNORMALITY IN ANTERIOR LEADS ABNORMAL ECG RI6.02 No previous ECG available for comparison
== END 2020-02-05 17:15 | disposition home or self-care (01) | DRG 190 ==
LOC: ER 09:16 → 1 SOUTH 10:55
PROVIDERS: ADMIT Hospitalist; ATTEND Internal Medicine
DX: J43.9 Emphysema, unspecified (principal); I50.41 Acute combined systolic (congestive) and diastolic (congestive) heart failure; E87.1 Hypo-osmolality and hyponatremia; R65.10 Systemic inflammatory response syndrome (SIRS) of non-infectious origin without acute organ dysfunction; I42.6 Alcoholic cardiomyopathy; I11.0 Hypertensive heart disease with heart failure; D50.9 Iron deficiency anemia, unspecified; D63.8 Anemia in other chronic diseases classified elsewhere; I73.9 Peripheral vascular disease, unspecified; Z77.090 Contact with and (suspected) exposure to asbestos; F10.20 Alcohol dependence, uncomplicated; F17.210 Nicotine dependence, cigarettes, uncomplicated; Z20.828 Contact with and (suspected) exposure to other viral communicable diseases; Z95.820 Peripheral vascular angioplasty status with implants and grafts; Z86.73 Personal history of transient ischemic attack (TIA), and cerebral infarction without residual deficits
CPT/HCPCS: 36415; 71045; 71275; 80048; 80053; 80061; 82274; 82553; 82728; 83540; 83550; 83605; 83615; 83735; 83880; 84484; 85025; 85379; 85610; 85730; 87040; 93005; 93306; 93923; 96365; 96368; 96375; G0480; J0456; J1100; J1940; J2543; J7050; Q9967; 99291-25; U0003-CS

== ENCOUNTER → 2020-02-17 | Emergency (ER) | payer BC ==
[2020-02-05 15:29] VITALS: BP 120/73
[~2020-02-17] MED LIST: AMLO10TA8 PO; ASCO500C PO; FERR325T14 PO; LOSA50TA14 PO
[2020-02-17 12:51] LABS: ALBUMIN 3.3 g/dL (3.4-5.0); ALBUMIN/GLOBULIN RATIO 0.8 (1.0-1.7); CALCIUM 8.2 mg/dL (8.5-10.1); CREATININE 1.1 mg/dL (0.7-1.3); GFR 67.8; TOTAL BILIRUBIN 0.6 mg/dL (0.2-1.0); TOTAL PROTEIN 7.2 g/dL (6.4-8.2)
[2020-02-17 13:08] LABS: RED BLOOD COUNT 4.26 x10^6/uL (4.30-5.70); WHITE BLOOD COUNT 19.1 x10^3/uL (4.0-11.0)
[2020-02-17 13:09] LABS: BASO # 0.1 x10^3/uL (0.0-0.2); BASO % 0 % (0-3); EOS # 0.2 x10^3/uL (0.0-0.7); EOS % 1 % (0-3); HEMOGLOBIN 8.8 g/dL (13.0-17.5); LYMPH # 1.5 x10^3/uL (1.0-4.8); LYMPH % 8 % (24-48); MEAN CORPUSCULAR HEMOGLOBIN 21 pg (25-35); MEAN CORPUSCULAR HGB CONC 31 g/dL (31-37); MEAN CORPUSCULAR VOLUME 68 fL (79-100); MONO # 1.6 x10^3/uL (0.0-1.1); MONO % 8 % (0-9); NEUT # 15.8 x10^3uL (1.8-7.7); NEUT % 83 % (31-73); PLATELET COUNT 467 x10^3/uL (140-400); RED CELL DISTRIBUTION WIDTH 18.5 % (11.5-14.5)
[2020-02-17 13:28] LABS: % BANDS 6 % (0-9); % EOS 1 % (0-5); % LYMPHS 5 % (24-48); % MONOS 9 % (0-10); % SEGS 80 % (35-66); PLT ESTIMATE INCREASED (ADEQUATE)
[2020-02-17 13:29] LABS: HYPOCHROMIA SLIGHT; MICROCYTOSIS MOD
--- NOTE | 2020-02-19 05:35 | PHYS DOC ---
Past History Past Medical History: COPD, Hypertension Past Surgical History: No Surgical History Additional Past Surgical Histo: Angioplasty to legs Smoking: Cigarettes, Greater than 1 pack/day Alcohol Use: Occasionally Drug Use: None General Adult EDM: Chief Complaint: chest pain HPI: HPI: Patient is a 60 year old male who presents at about 0525am for evaluation of left-sided chest pain. Patient states the symptom started at 2 AM. Patient states he feels weak. Patient was admitted 2 weeks ago for shortness of air. Patient has a history of COPD. There is no known COVID exposure. Patient states the pain woke him up from sleep. It should be noted that this chart was filled out after the initial visit. The computer system was down and this chart was filled out with notes I taken at the time. Although patient denied any injury he did put ice on his chest to see if that would help the symptoms. It did not help. Review of Systems: Review of Systems: Constitutional: Denies fever or chills Eyes: Denies change in visual acuity HENT: Denies nasal congestion or sore throat Respiratory: Denies cough or shortness of breath Cardiovascular: has chest pain no edema GI: Denies abdominal pain, nausea, vomiting, bloody stools or diarrhea : Denies dysuria Musculoskeletal: Denies back pain or joint pain Integument: Denies rash Neurologic: Denies headache, focal weakness or sensory changes Endocrine: Denies polyuria or polydipsia Lymphatic: Denies swollen glands Psychiatric: Denies depression or anxiety Heart Score: HEART Score for Chest Pain: HEART Score for Chest Pain Response (Comments) Value History Highly Suspicious [address] Depression 2 Age >45 - < 65 1 Risk Factors 1 or 2 Risk Factors 1 Troponin >1-<3x Normal Limit 1 Total 7 Risk Factors: Risk Factors: DM, Current or recent (<one month) smoker, HTN, HLP, family history of CAD, obesity. Risk Scores: Score 0 - 3: 2.5% MACE over next 6 weeks - Discharge Home Score 4 - 6: 20.3% MACE over next 6 weeks - Admit for Clinical Observation Score 7 - 10: 72.7% MACE over next 6 weeks - Early Invasive Strategies Allergies: Allergies: Allergies Coded Allergies Type Severity Reaction Last Updated Verified No Known Drug Allergies 08/14/17 No Physical Exam: PE: Constitutional: Well developed, well nourished, moderate distress. [] HENT: Normocephalic, atraumatic, bilateral external ears normal, oropharynx moist, no oral exudates, nose normal. [] Eyes: PERRL, EOMI, conjunctiva normal, no discharge. [] Neck: Normal range of motion, no tenderness, supple, no stridor. [] Cardiovascular:Heart rate regular rhythm, no murmur [] Lungs & Thorax: Bilateral breath sounds clear to auscultation [] Abdomen: Bowel sounds normal, soft, no tenderness, no masses, no pulsatile masses. [] Skin: Warm, dry, no erythema, no rash. [] Back: No tenderness, no CVA tenderness. [] Extremities: No tenderness, no cyanosis, no clubbing, ROM intact, no edema. [] Neurologic: Alert and oriented X 3, normal motor function, normal sensory function, no focal deficits noted. [] Psychologic: Affect normal, judgement normal, mood normal. [] Current Patient Data: Labs: Labs were abnormal and showed troponin XII, coags were normal, white blood cell count 19. Low sodium of 129 EKG: EKG: EKG read at 0525 AM showed sinus tachycardia 105, ST segment elevation in the anterior and lateral leads consistent with STEMI [] Radiology/Procedures: Radiology/Procedures: CXR: no acute findings[] Course & Med Decision Making: Course & Med Decision Making Pertinent Labs and Imaging studies reviewed. (See chart for details) [] Dragon Disclaimer: Dragon Disclaimer: This electronic medical record was generated, in whole or in part, using a voice recognition dictation system. 05 STEMI called and full dose aspirin given 532 Case discussed with [facility] charge nurse and I talked to Dr. Hernández in the ER for ED to ED transfer. 05 Dr. Lyons, [employer] called back and informed about STEMI. He is aware that qcue was down at that time. As requested patient given n itroglycerin sublingual x2. Heparin 4000 units given. Pain significantly improved before transfer. Departure Departure: Impression: Primary Impression: STEMI (ST elevation myocardial infarction) Qualified Codes: I21.3 - ST elevation (STEMI) myocardial infarction of unspecified site Additional Impression: Leukocytosis Disposition: 05 TRANSFER OTHER (Dr. Hernández and Dr. Lyons accepted pt in transfer to [facility]) Condition: STABLE Referrals: FAMILIA KHALIL (PCP) Justification of Admission: Justification of Admission: Justification of Admission Dx: Yes CHF: Cardiac Arrhythmias Angina: [facility] at [facility] Critical Care Time Critical care time was 30 minutes exclusive of procedures. This included talk ing to patient, [facility] as well as the accepting technology services manager WALLACE PIERSON DO Feb 19, 2020 05:35
== END ==
LOC: ER 05:15
DX: I21.3 ST elevation (STEMI) myocardial infarction of unspecified site (principal); D72.829 Elevated white blood cell count, unspecified; R07.89 Other chest pain; R53.1 Weakness; J44.9 Chronic obstructive pulmonary disease, unspecified; I10 Essential (primary) hypertension; F17.210 Nicotine dependence, cigarettes, uncomplicated; Z98.890 Other specified postprocedural states
CPT/HCPCS: 36415; 80053; 82553; 84484; 85007; 85025; 85610; 85730; 99283; 99291